=== PATIENT | female | born 2000 | race Caucasian/White ===

== ENCOUNTER 2020-06-07 07:47 | Observation (INO) | payer OTHER ==
[2020-06-05 16:20] VITALS: BMI 22.9
[2020-06-07] MEDS ORDERED: Midazolam HCl 2 mg/2 ml Vial ONE (08:35)
[2020-06-07] MEDS ORDERED: Fentanyl 100 MCG/2 ML VIAL ONE ×3 (08:35→12:39)
[2020-06-07] MEDS ORDERED: Fentanyl 100 MCG/2 ML VIAL IV PRN (09:25)
[2020-06-07] MEDS ORDERED: HYDROcodone/Acetaminophen 7.5/325 mg Tablet PO PRN ×2 (09:26)
[2020-06-07] MEDS ORDERED: Ketorolac Tromethamine 30 MG/ML VIAL ONE (09:29)
[2020-06-07] MEDS ORDERED: Dexamethasone 20 MG/5 ML VIAL ONE (09:29)
[2020-06-07] MEDS ORDERED: Ondansetron PF 4 MG/2 ML Vial ONE (09:29)
[2020-06-07] MEDS ORDERED: diphenhydrAMINE 50 MG/ML VIAL ONE (09:29)
[2020-06-07] MEDS ORDERED: PROPOFOL 200 MG/20 ML VIAL ONE (09:29)
[2020-06-07] MEDS ORDERED: Ropivacaine 0.5% HCl/PF (150 MG/30 ML VIAL) ONE (09:29)
[2020-06-07] MEDS ORDERED: Lidocaine 1% PF 5 ML VIAL ONE (09:29)
[2020-06-07] MEDS ORDERED: Ondansetron PF 4 MG/2 ML Vial IVP PRN (09:30)
[2020-06-07] MEDS ORDERED: traMADol HCl 50 MG TAB PO PRN ×2 (09:30)
[2020-06-07] MEDS ORDERED: Zolpidem Tartrate 5 MG TAB PO PRN (09:30)
[2020-06-07] MEDS ORDERED: Promethazine HCl 25 MG/ML VIAL IM PRN ×2 (09:30→12:07)
[2020-06-07] MEDS ORDERED: Ropivacaine 0.2% 550 ML 550 ML NERVE BLCK SCH (09:30)
[2020-06-07 09:41] LABS: SARS-CoV-2 NAA Rapid Test Not Detected (NotDetected)
[2020-06-07] MEDS ORDERED: Bisacodyl 10 MG SUPP PR PRN (09:52)
[2020-06-07] MEDS ORDERED: Acetaminophen 500 MG TAB PO PRN (09:52)
[2020-06-07] MEDS ORDERED: Methocarbamol 500 MG TAB PO PRN (09:52)
[2020-06-07] MEDS ORDERED: Morphine 2 MG/ML VIAL SLOW IVP PRN (09:52)
[2020-06-07] MEDS ORDERED: diphenhydrAMINE 50 MG CAP PO PRN (09:52)
[2020-06-07] MEDS ORDERED: Milk Of Magnesia 30 ML UDCUP PO PRN (09:52)
[2020-06-07] MEDS ORDERED: Promethazine HCl 25 MG/ML VIAL SLOW IVP PRN (12:07)
[2020-06-07] MEDS ORDERED: PACU-Morphine 4MG/ML VIAL SLOW IVP PRN (12:07)
[2020-06-07] MEDS ORDERED: Meperidine HCl/PF 25 MG/ML VIAL SLOW IVP PRN (12:07)
[2020-06-07] MEDS: Ketorolac Tromethamine 30 MG/ML VIAL IVP SCH ×2 (12:25→18:10)
--- NOTE | 2020-06-07 12:28 | OP ---
DATE OF PROCEDURE: 06/07/2020 PREOPERATIVE DIAGNOSIS: Left knee anterior cruciate ligament tear. POSTOPERATIVE DIAGNOSIS: Left knee anterior cruciate ligament tear. PROCEDURES PERFORMED: 1. Left knee exam under anesthesia. 2. Left knee arthroscopy with arthroscopically-assisted anterior cruciate ligament reconstruction using an autologous patellar tendon graft. CAREER EDUCATION TEACHER: Ananda Paniagua PA-C. The assistant professor of history surgeon was present throughout the procedure to include harvest of the graft, drilling and placement of new graft, and closure of all knee wounds. ESTIMATED BLOOD LOSS: Minimal. COMPLICATIONS: None. ANESTHESIA: She did have a general anesthetic. She also had a preoperative block. IMPLANTS: To the left knee, 7 x 25 metal interference screw on the femur, we used a bicortical screw with a smooth washer on the tibia. DISPOSITION: She did go to recovery room in stable condition. 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 DESCRIPTION OF PROCEDURE: After all appropriate consent forms were explained and signed, she was taken back to the operative room and at this time was given general anesthetic. Once the level of anesthesia was appropriate, tourniquet was placed onto the left thigh. Exam under anesthesia confirmed a positive Austin's and a positive pivot shift. At this time, the leg was placed in arthroscopic leg young. The limb was then prepped and draped in standard surgical fashion. The limb was exsanguinated and tourniquet was taken up to 300 mmHg. A 10 blade was used to make a skin incision and a Bovie was used to coagulate any brisk venous bleeding. New blade was used to take the paratenon off the underlying patellar tendon. Central third patellar tendon graft was then harvested using a double 10 blade saw and osteotome. This was taken to the back table and made, so the femoral bone plug was size 9 and the tibial bone plug was size 10. At this time, we did evaluate the knee thoroughly, found the medial and lateral compartments to be intact as well as patellofemoral joint. No loose bodies were noted in the gutters. At this time, notchplasty was performed. We then flexed the knee up, and through the medial portal, an [id number]-[id number] guide was placed and a pin was placed up and out the anterolateral thigh. A 9 mm reamer was then used to ream to a depth of 30 mm. All loose bony cartilaginous debris was removed from the knee joint. The tibial guide was then set into the knee at 55 degrees. Pin was placed up into the knee joint. A 10 mm reamer was used to ream our tibial tunnel. Again all loose bony cartilaginous debris was removed from the knee joint. A red rasp and caleb were used to smooth off any rough edges, and at this time, we went dry. The knee was flexed up one more time and a pin was placed up and out the anterolateral thigh, pulling a passing suture into the knee joint. The passing suture was pulled down through the tibial tunnel and used to guide our graft into place. We then fixated our femoral side using a 7 x 25 metal interference screw. A drill was used to drill. We then tapped and placed our bicortical screw with a smooth washer, tying our strings around this post with the knee in full extension and posterior drawer being applied. At this time, the knee was taken through full range of motion, was found to have full extension and full flexion with no impingement on the femur or the PCL. The scope was removed and the knee was drained. At this time, our patellar and tibial graft sites were bone grafted. We then ran a Vicryl to close our paratenon, 2-0 Vicryl and Stratafix were used to close skin. SurgiSeal skin glue was used on top. Once this dried, a bulky sterile dressing was applied. Tourniquet was let down. Toes pinked up nicely. The patient was awakened, she was taken to recovery room in stable condition. All counts were correct at the end of the case. She did receive preoperative IV antibiotics. Job ID: [id number]
[2020-06-07] MEDS: Dextrose 5 %-0.45 % NaCl 1,000 ML IV SCH ×2 (12:42→22:00)
[2020-06-07] MEDS ORDERED: HYDROcodone/Acetaminophen 7.5/325 mg Tablet ONE (14:42)
[2020-06-07] MEDS: CEFAZOLIN 2 GM in Premix Bag 1 BAG IVPB SCH (17:01)
[2020-06-07] MEDS: Famotidine 20 MG TAB PO SCH (20:22)
[2020-06-08] MEDS: Ketorolac Tromethamine 30 MG/ML VIAL IVP SCH ×2 (00:05→05:32)
[2020-06-08] MEDS: CEFAZOLIN 2 GM in Premix Bag 1 BAG IVPB SCH (00:05)
[2020-06-08] MEDS: Dextrose 5 %-0.45 % NaCl 1,000 ML IV SCH (05:31)
[2020-06-08] MEDS: Famotidine 20 MG TAB PO SCH (10:37)
[2020-06-08 12:05] VITALS: BP 126/79; TEMP 98
[2020-06-08] MEDS ORDERED: FLU VACC QS2020-21(6MOS UP)/PF 60 MCG/0.5 ML SYRINGE IM ONE (16:45)
== END 2020-06-08 12:49 | disposition home or self-care (01) ==
LOC: SDC 07:47 → SJJU 09:54
PROVIDERS: ADMIT Orthopaedic Surgery; ATTEND Orthopaedic Surgery
PROC: 0MRP47Z Replacement of Left Knee Bursa and Ligament with Autologous Tissue Substitute, Percutaneous Endoscopic Approach (ICD-10-PCS; principal; 2020-06-07)
DX: S83.511A Sprain of anterior cruciate ligament of right knee, initial encounter (principal); M23.92 Unspecified internal derangement of left knee; Z79.2 Long term (current) use of antibiotics; Z20.822 Contact with and (suspected) exposure to COVID-19; X58.XXXA Exposure to other specified factors, initial encounter
CPT/HCPCS: 96365; 96375; 96376; A4306; C1713; G0378; J0690; J1100; J1200; J1885; J2250; J2405; J2704; J2795; J3010; U0002